=== PATIENT | female | born 2005 | race Caucasian/White ===

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

== ENCOUNTER 2023-02-03 08:28 | Emergency (ER) | payer OTHER, SELFPAY ==
--- NOTE | ~2023-02-03 | XR_ITS ---
EXAMINATION: XR HIP, RIGHT, with AP pelvis CLINICAL INFORMATION: Pain for 2 days. COMPARISON: None available. TECHNIQUE: Two views of the right hip. AP view of pelvis. FINDINGS: Right hip: The femoral head is well-positioned within the intact acetabulum. The hip joint space is normal. No arthritic deformity. No fracture or subluxation. Pelvis: Bones, joints and soft tissues have a normal appearance. No specific source of pain is identified. XR/XR hip RT w PEL1V IMPRESSION: Normal radiographic examinations of the pelvis and right hip.
[2023-02-03 09:22] VITALS: BP 102/61; PULSE 83; RESP 18; TEMP 36.6; O2SAT 98; BMI 29.6
--- NOTE | 2023-02-03 09:33 | ED.LOWEXIN ---
HPI - Extremity Injury (Lower) General Chief Complaint: Extremity Injury, Lower Stated Complaint: hip possibly dislocated Time Seen by Provider: 02/03/23 09:23 Source: patient Mode of arrival: ambulatory Limitations: no limitations History of Present Illness HPI Narrative: Patient is a 17-year-old female presenting to the emergency department with complaint of right hip pain radiating down right leg for the past 2 days. Patient states that she has been unable to walk due to level of pain. She denies any fall or other trauma. Denies any numbness or tingling to lower extremities. Denies any fevers. Denies any dysuria, frequency, other urinary symptoms. States has not taken any jyve-eyo-cvxbsmy medications for her pain at home. Stating ?I think my hip is dislocated. ? complaint: other (hip pain right) Onset (ago): day(s) Injury: Right: hip (atraumatic) Severity: severe Relieving factors: nothing Exacerbating factors: weight bearing Associated symptoms: able to partially bear weight Other symptoms: none Related Data Previous Rx's Medication Instructions Recorded nitrofurantoin 100 mg PO BID 7 days #14 caps 05/21/22 monohydrate/macrocrystals 100 mg capsule (Macrobid) ondansetron HCl 4 mg tablet 4 mg PO Q8H #14 tabs 05/21/22 cyclobenzaprine 5 mg tablet 5 mg PO TID PRN muscle spasm #10 02/03/23 tabs lidocaine 5 % topical patch 1 patch topical DAILY #15 ea 02/03/23 naproxen 500 mg tablet 500 mg PO BID #14 tabs 02/03/23 Allergies Allergy/AdvReac Type Severity Reaction Status Date / Time No Known Allergies Allergy Verified 02/03/23 09:22 Review of Systems Review of Systems: As per HPI Yes all other systems are reviewed and are negative Constitutional: Constitutional: Reports as per HPI [facility] Social History Social History Smoked in Last 30 Days: No Substance Use Type: Marijuana Substance Use Frequency: Daily Advance Directives: No Physical Exam Vital Signs: Vital Signs: Last Vital Signs Temp 98 F 02/03/23 09:22 Pulse 83 02/03/23 09:22 Resp 18 02/03/23 09:22 BP 102/61 02/03/23 09:22 Pulse Ox 98 02/03/23 09:22 O2 Del Method Room Air 02/03/23 09:22 BMI result Body Mass Index 29.6 Vital signs have been reviewed and appear to be correct. Blood pressure normal. Heart rate normal. Respiratory rate normal. Temperature normal. Oxygen saturation normal. Const: General: cooperative, healthy appearing and no acute distress Orientation/consciousness: oriented to person, oriented to place, oriented to time and patient oriented x3 Limitations: no limitations HEENT: Head: Yes normocephalic and Yes atraumatic Ears: external ears normal General nose exam: Normal external nose present Face and sinus: Yes face symmetric Mouth: oropharynx normal and moist mucous membranes Throat: Yes uvula midline Eyes: Pupils: Equal, round and reactive pupils present Neck: Neck: Yes normal visual inspection and Yes supple Resp: Effort & Inspection: normal respiratory effort and able to speak in complete sentences Auscultation: clear to auscultation bilaterally Cardio: Rate: regular rate Rhythm: regular rhythm Heart sounds: S1 normal heart sound present and S2 normal heart sound present GI: Palpation (GI): Soft to palpation and nontender Auscultation: normoactive bowel sounds : General: Yes no CVA tenderness Back/Spine/Pelvis: Back: no CVA tenderness Thoracic/Lumbar Spine: thoracic and lumbar spine normal to inspection, paraspinal muscle tenderness on the right in the mid lumbar, No thoracic spinal tenderness, No lumbar spinal tenderness and straight leg raise positive right Pelvis: no pain with anterior-posterior compression and no pain with lateral compression Skin: General skin exam: elasticity normal and turgor normal Neuro: General: oriented to person, oriented to place, oriented to time, patient oriented x3, moves all extremities, no focal motor deficits and CN's II-XI intact bilaterally Cranial nerves: Yes Equal, round and reactive pupils present Cognition (Neuro): normal cognition Extrem: General: Yes normal to inspection, Yes full ROM, Yes capillary refill normal, Yes normal exam except as noted, Yes no pedal edema and Yes no calf tenderness Right lower extremity: normal to inspection, normal capillary refill, hip/thigh Details: normal to inspection and abnormal ROM Details: pain with passive ROM during Details: to ADduction, to ABduction, to extension, to flexion, to internal rotation and to external rotation and with range as follows (full passive ROM); no tenderness, no ecchymosis, no crepitus, no deformity and no unusual warmth and foot Details: vascular exam Details: dorsalis pedis pulse present and posterior tibial pulse present Psych: Mental Status: mental status grossly normal Affect: normal affect Thought process: Normal thought process present Medications Administered Discontinued Medications Generic Name Dose Route Start Last Admin Trade Name Kasey PRN Reason Stop Dose Admin Acetaminophen 975 mg 02/03/23 09:37 02/03/23 10:02 Acetaminophen 325 Mg Tablet PO 02/03/23 09:38 975 mg ONCE ONE Administration Medical Decision Making Medical Decision Making [facility] Narrative: Patient is a 17-year-old female presenting to the emergency department with complaint of right hip pain radiating down right leg for the past 2 days. On exam patient is awake, A+Ox3, VS WNL, afebrile, normal neurological exam without focal deficits, physical exam findings as above. Given reported symptoms and physical exam findings, initial differential includes strain, sprain, lumbar radiculopathy. Do not suspect dislocation based on physical exam findings but will obtain x-ray. X-ray notable for no acute abnormalities. My interpretation is in agreement with the radiologist's interpretation. Patient now ambulating in room independently. Results discussed with patient and all questions answered. Will prescribe cyclobenzaprine, naproxen, lidocaine. Instructed patient to follow-up with PCP. Return precautions discussed at bedside. Patient verbalized understanding of and agreement with plan. Differential Diagnosis Differential Diagnoses: The differential diagnosis associated with the presentation includes As per MDM. Independent Interpretation I performed an independent interpretation of an: Plain X-Ray Interpretation: No acute abnormalities Radiology Impression Discussion of test interpretation with radiology: I have reviewed the radiologist's reading. Radiologist Impression: XR/XR hip RT w PEL1V IMPRESSION: Normal radiographic examinations of the pelvis and right hip. External Record Review External record reviewed: Inpatient record, Office record and Outpatient record Prescription Management I considered prescription management with: Pain Medication and Other Discharge Plan Discharge Clinical Impression: Acute pain of right hip Patient Disposition: Home, Self-Care Instructions: Hip Pain (ED) Additional Instructions: You have been evaluated in the emergency department today for hip pain. Your evaluation did not find evidence of medical conditions requiring emergent intervention at this time. Please rest, and ice your hip, and resume normal activities as tolerated. You are being prescribed cyclobenzaprine which you can take up to every 8 hours for muscle spasms, lidocaine patches which can wear for up to 12 hours in a 24 hour., and naproxen which you should take twice daily as prescribed. Do not apply heat directly over the lidocaine patches. Return to the emergency department if you experience worsening pain, numbness, tingling, change of color in your leg, or any other concerning symptoms. Please call your primary care provider to schedule an appointment for this week. Prescriptions: New cyclobenzaprine 5 mg tablet 5 mg PO TID PRN (Reason: muscle spasm) Qty: 10 0RF naproxen 500 mg tablet 500 mg PO BID Qty: 14 0RF lidocaine 5 % adhesive patch,medicated 1 patch topical DAILY Qty: 15 0RF Rx Instructions: leave on most painful area for up to 12 hrs No Action nitrofurantoin monohyd/m-cryst [Macrobid] 100 mg capsule 100 mg PO BID 7 Days Qty: 14 0RF Rx Instructions: must administer with a meal/food ondansetron HCl 4 mg tablet 4 mg PO Q8H Qty: 14 0RF Referrals: [facility] [Provider Group]
[2023-02-03] MEDS: Acetaminophen 325 MG TABLET 975 MG PO (10:02)
[2023-02-03 11:48] VITALS: BP 104/60; PULSE 108; RESP 18; TEMP 36.2; O2SAT 98
--- NOTE | 2023-02-03 12:18 | PC.NURSE ---
Addendum entered by Keya Dougherty 02/03/23 12:18: written at 1155 Original Note: pt report some + effect w tylenol. ambulatse well to WR. no resp distress. talking well
== END 2023-02-03 11:55 | disposition home or self-care (01) ==
PROVIDERS: Emergency Provider Emergency Medicine
DX: M25.551 Pain in right hip (principal); F12.90 Cannabis use, unspecified, uncomplicated
CPT/HCPCS: 73502; 99283; 99284

== ENCOUNTER → 2023-06-08 11:10 | Outpatient (BNVA) | payer OTHER, SELFPAY | PROVIDERS: Visit Provider Physical Medicine & Rehabilitation ==

== ENCOUNTER 2023-12-11 10:11 | Emergency (ER) | payer OTHER, SELFPAY ==
[2023-12-11 10:13] VITALS: BP 83/53; PULSE 78; RESP 22; TEMP 36.7; O2SAT 97; BMI 28.7
[2023-12-11 10:41] VITALS: BP 119/50; PULSE 86; RESP 20; O2SAT 98
--- NOTE | 2023-12-11 10:48 | ECG_ITS ---
Test Reason : dyspnea Blood Pressure : / mmHG Vent. Rate : 072 BPM Atrial Rate : 072 BPM P-R Int : 120 ms QRS Dur : 080 ms QT Int : 416 ms P-R-T Axes : 055 060 035 degrees QTc Int : 455 ms Normal sinus rhythm with sinus arrhythmia Normal ECG No previous ECGs available Referred By: Nissa Mena Electronically Signed By:KASEY LE
[2023-12-11 10:52] LABS: MANUAL DIFF FLAG NO
[2023-12-11] MEDS: diphenhydrAMINE HCL 50 MG/ML VIAL 25 MG IVPUSH (10:54)
[2023-12-11] MEDS: 0.9 % Sodium Chloride 1,000 ML 999 ML IV ×2 (10:54→10:56)
[2023-12-11 11:02] LABS: Basophils Percent Auto 0.2 % (0-2); Hematocrit 40.1 % (37.0-47.0); Hemoglobin 14.3 g/dl (12.0-16.0); Imm Gran Abs Auto 0.11 X10*3/uL (0.00-0.03); Imm Gran Pct Auto 0.8 % (0.0-0.4); Lymphocytes Absolute Auto 1.4 X10*3/uL (1.2-4.9); Lymphocytes Percent Auto 9.7 % (20-40); Mean Corpuscular HGB Conc 35.7 g/dl (31.0-35.0); Mean Corpuscular Hemoglobin 29.7 pg (27.0-33.0); Mean Corpuscular Volume 83.2 fL (80.0-98.0); Mean Platelet Volume 9.8 fL (9.4-12.3); Monocytes Absolute Auto 0.6 X10*3/uL (0.1-1.2); Monocytes Percent Auto 4.3 % (2-11); Neutrophils Absolute Auto 12.3 x10*3/uL (2.0-8.3); Platelet Count 351 X10*3/uL (160-400); Red Blood Count 4.82 X10*6/uL (4.20-5.50); Red Cell Distribution Width 12.4 % (11.0-16.0); White Blood Count 14.5 X10*3/uL (4.8-10.8)
--- NOTE | 2023-12-11 11:04 | ED_ITS ---
HPI - Nausea/Vomiting/Diarrhea General Chief complaint: Dyspnea Stated complaint: Diff breathing Time Seen by Provider: 12/11/23 10:27 Source: patient and other (spouse) Mode of arrival: ambulatory Limitations: no limitations History of Present Illness ED Provider: SYEDA FONTAINE Narrative: 18 yo female with PMH of anxiety, G1 8 weeks D = [facility] here with c/o n/v all night then started to panic and feel short of breath. She denies cough, fevers, chest pain, leg swelling. She is not on any medications right now. She had a panic attack on arrival to the ED including sweating, hyperventilation, crying. No recent travel or procedures. No vaginal bleeding reported. MD elicited complaint: nausea, vomiting and other (dyspnea) Pertinent past history: other (8 weeks ) Onset (ago): hour(s) (several) Description of vomiting: watery Associated nausea: Yes Associated abdominal pain: No Severity: moderate Exacerbating factors: eating Relieving factors: none Context: other () Associated symptoms: loss of appetite, malaise, nausea/vomiting, shortness of breath, weakness and anxiety Related Data Previous Rx's ?Medication ?Instructions ?Recorded nitrofurantoin 100 mg PO BID 7 days #14 caps 05/21/22 monohydrate/macrocrystals 100 mg capsule (Macrobid) ondansetron HCl 4 mg tablet 4 mg PO Q8H #14 tabs 05/21/22 cyclobenzaprine 5 mg tablet 5 mg PO TID PRN muscle spasm #10 02/03/23 tabs lidocaine 5 % topical patch 1 patch topical DAILY #15 ea 02/03/23 naproxen 500 mg tablet 500 mg PO BID #14 tabs 02/03/23 Allergies Allergy/AdvReac Type Severity Reaction Status Date / Time No Known Allergies Allergy Verified 12/11/23 10:16 Review of Systems 2 Review of Systems: Constitutional : No Weight loss, No Fever, No Chills ENT/Mouth : No sore throat, No Rhinorrhea Eyes: No Swelling, No Redness Cardiovascular : No Chest Pain, pos SOB, No Edema Respiratory : No Cough, No Sputum, No Wheezing Gastrointestinal : Positive Nausea, Positive Vomiting, no Diarrhea, no abdominal Pain, No Hematochezia, No Melena Genitourinary : No Dysuria, No Urinary Frequency, No Hematuria, No Urgency Musculoskeletal : No joint pain, No Myalgias, No Joint Swelling Skin : No Skin Lesions, No rash Neuro : pos Weakness, No Numbness, No Dizziness, No Headache Psych : pos Anxiety/Panic, No Depression Heme/Lymph: No Bruising, No Lymphadenopathy Endocrine : No Polyuria, No Polydipsia All other systems reviewed and are negative. Gastrointestinal: Gastrointestinal: Reports nausea PMFSH Past Medical History Attestation statement: The following information was validated with the patient. Source: old records reviewed Medical History (Updated 12/11/23 @ 13:40 by Nissa Mena DO) Anxiety Social History Social History (Updated 12/11/23 @ 11:09 by Nissa Mena DO) Patient Tobacco Use Status: Never used Tobacco Substance Use Type: Marijuana Advance Directives: No Advance Directives Information Provided: No Do you have a plan to hurt others: No Plan Physical Exam 2 Vital Signs: Vital Signs: Last Vital Signs Temp 98.0 F 12/11/23 10:13 Pulse 86 12/11/23 10:41 Resp 20 12/11/23 10:41 BP 119/50 L 12/11/23 10:41 Pulse Ox 98 12/11/23 10:41 O2 Del Method Room Air 12/11/23 10:41 BMI result Body Mass Index 28.7 Appearance: Alert. Oriented X3. anxious tearful, hyperventilating, crying, hands carpopedal spasm tingling mild acute distress. Eyes: Pupils equal, round and reactive to light. ENT: Pharynx normal. Neck: Normal inspection. Neck supple. CVS: Normal heart rate and rhythm. Pulses normal. Respiratory: No respiratory distress. Breath sounds normal. Abdomen: Soft and nontender. Skin: Skin warm and dry. Normal skin color. Normal skin turgor. Extremities: No lower extremity edema. No calf ttp Neuro: Oriented X 3. No motor deficit. No sensory deficit. Course Course Course Narrative: repeat BP check normal suspect dehydration not infection or severe sepsis Reevaluation(s) Reevaluation #1: one bump in ALT but no abdominal pain, plts normal, BP normal at this time stable for DC Medications Administered Discontinued Medications Generic Name Dose Route Start Last Admin Trade Name Freq PRN Reason Stop Dose Admin Diphenhydramine HCl 25 mg 12/11/23 10:48 12/11/23 10:54 Diphenhydramine Hcl 50 Mg/Ml Vial IVPUSH 12/11/23 10:49 25 mg ONCE ONE Administration Sodium Chloride 1,000 mls @ 999 mls/hr 12/11/23 10:49 12/11/23 13:27 Ns IV 12/11/23 11:49 Infused .Q1H1M ONE Infusion Sodium Chloride 1,000 mls @ 999 mls/hr 12/11/23 10:50 12/11/23 13:27 Ns IV 12/11/23 11:50 Infused .Q1H1M ONE Infusion Metoclopramide HCl 10 mg 12/11/23 11:57 12/11/23 11:59 Metoclopramide Hcl 10 Mg/2 Ml Vial IVPUSH 12/11/23 11:58 10 mg ONCE ONE Administration Medical Decision Making Medical Decision Making [facility] Narrative: 18 yo female with PMH of anxiety here with c/o n/v and severe anxiety now with dyspnea no URI symptoms or fevers, no hypoxia or signs of edema or calf pain to suggest DVT no recent travel or procedures has no chest pain at this time suspect anxiety induced dyspnea I am not suspecting VTE, CHF, ACS will obtain labs, EKG, IV benadryl for anxiety and 2L of IVF. Will reassess. Differential Diagnosis Differential Diagnoses: The differential diagnosis associated with the presentation includes hyperemesis, dehydration, panic attack, anxiety Admission/Observation Consideration of admission/observation: Escalation of care including admission/observation considered tolerating PO feels much better has nausea Rx in pharmacy can be DC home Lab Data [facility] Lab Attestation statement: I reviewed the patient's lab results. 12/11/23 10:47 12/11/23 10:47 Labs: Lab Results 12/11/23 12/11/23 12/11/23 Range/Units 10:47 10:57 13:13 WBC 14.5 H (4.8-10.8) X10*3/uL RBC 4.82 (4.20-5.50) X10*6/uL Hgb 14.3 (12.0-16.0) g/dl Hct 40.1 (37.0-47.0) % MCV 83.2 (80.0-98.0) fL MCH 29.7 (27.0-33.0) pg MCHC 35.7 H (31.0-35.0) g/dl RDW 12.4 (11.0-16.0) % Plt Count 351 (160-400) X10*3/uL MPV 9.8 (9.4-12.3) fL Immature Gran % (Auto) 0.8 H (0.0-0.4) % Neut % (Auto) 85.0 H (45-73) % Lymph % (Auto) 9.7 L (20-40) % [place] % (Auto) 4.3 (2-11) % Eos % (Auto) 0.0 (0-4) % Baso % (Auto) 0.2 (0-2) % Lymph # (Auto) 1.4 (1.2-4.9) X10*3/uL [place] # (Auto) 0.6 (0.1-1.2) X10*3/uL Eos # (Auto) 0.0 (0.0-0.4) X10*3/uL Baso # (Auto) 0.0 (0.0-0.2) X10*3/uL Abs Immat Gran (auto) 0.11 H (0.00-0.03) X10*3/uL Absolute Neuts (auto) 12.3 H (2.0-8.3) x10*3/uL Absolute Nucleated RBC 0.000 (0.0-0.012) X10*3/uL Nucleated RBC % (auto) 0.0 (0.0-0.2) /100WBC Sodium 140 (135-145) mmol/L Potassium 3.7 (3.3-5.1) mmol/L Chloride 106 (96-108) mmol/L Carbon Dioxide 17 L (22-29) mmol/L Anion Gap 21 H (12-20) BUN 9 (9-16) mg/dL Creatinine 0.87 (0.5-1.4) mg/dL Estim Creat Clear Calc 99.0 Estimated GFR > 60 Random Glucose 119 H (60-115) mg/dL Calcium 10.9 H D (8.4-10.2) mg/dL Total Bilirubin 0.7 (0.0-1.0) mg/dL AST 14 (5-31) U/L ALT 65 H (0-31) U/L Alkaline Phosphatase 51 (39-117) U/L Total Protein 7.8 (6.5-8.0) g/dL Albumin 4.8 (3.5-5.0) g/dL Beta HCG, Quant 10963 mIU/mL Urine Color Yellow Urine Appearance Cloudy Urine pH 7.5 (5.0-9.0) Ur Specific [place] 1.025 (1.005-1.025) Urine Protein 30 (1+) H (Neg-Trace) mg/dL Urine Glucose (UA) Negative (Negative) mg/dL Urine Ketones >=160 (Negative) mg/dL Urine Blood Negative (Negative) Urine Nitrite Negative (Negative) Ur Leukocyte Esterase Negative (Negative) Influenza Type A (PCR) NEGATIVE (Negative) Influenza Type B (PCR) NEGATIVE (Negative) RSV RNA Qual (PCR) NEGATIVE (Negative) SARS-CoV-2 RNA (RT-PCR) NEGATIVE (Negative) Independent Interpretation I performed an independent interpretation of an: EKG Interpretation: Rate: 72 Rhythm: NSR [place]: normal Normal P waves. Normal JAJA. Normal QRS complex. ST T wave : normal no SAURABH qTC: 455 prior studies: no acute ischemia The study has been interpreted contemporaneously by me. . Independent Historian Clinical information obtained from an independent historian. History obtained from or confirmed by: Other (partner) External Record Review External record reviewed: Outpatient record Prescription Management I considered prescription management with: Other Discharge Plan Discharge Clinical Impression: Hyperemesis gravidarum, Acute dehydration Patient Disposition: Home, Self-Care Instructions: Hyperemesis Gravidarum (ED), Dehydration (ED) Additional Instructions: go grape picker your prescriptions now return here for any worsening symptoms or concerns stay hydrated follow up with your OBGYN or provider rest as much as you can today Prescriptions: No Action nitrofurantoin monohyd/m-cryst [Macrobid] 100 mg capsule 100 mg PO BID 7 Days Qty: 14 0RF Rx Instructions: must administer with a meal/food ondansetron HCl 4 mg tablet 4 mg PO Q8H Qty: 14 0RF cyclobenzaprine 5 mg tablet 5 mg PO TID PRN (Reason: muscle spasm) Qty: 10 0RF naproxen 500 mg tablet 500 mg PO BID Qty: 14 0RF lidocaine 5 % adhesive patch,medicated 1 patch topical DAILY Qty: 15 0RF Rx Instructions: leave on most painful area for up to 12 hrs Print Language: Yoruba
[2023-12-11 11:19] LABS: Alanine Aminotransferase 65 U/L (0-31); Albumin Level 4.8 g/dL (3.5-5.0); Alkaline Phosphatase 51 U/L (39-117); Anion Gap 21 (12-20); Aspartate Amino Transferase 14 U/L (5-31); Bilirubin Total 0.7 mg/dL (0.0-1.0); Blood Urea Nitrogen 9 mg/dL (9-16); Calcium 10.9 mg/dL (8.4-10.2); Carbon Dioxide 17 mmol/L (22-29); Chloride 106 mmol/L (96-108); Estimated Glomerular Filt Rate > 60; Glucose Random 119 mg/dL (60-115); Potassium 3.7 mmol/L (3.3-5.1); Sodium 140 mmol/L (135-145); Total Protein 7.8 g/dL (6.5-8.0)
[2023-12-11] MEDS: Metoclopramide HCl 10 MG/2 ML VIAL IVPUSH (11:59)
[2023-12-11 12:06] LABS: Influenza A PCR NEGATIVE (Negative); Influenza B PCR NEGATIVE (Negative); Resp Syncy Virus RNA Qual PCR NEGATIVE (Negative); SARS COV2 PCR INHOUSE NEGATIVE (Negative)
--- NOTE | 2023-12-11 12:29 | PC.NURSE ---
patient complaining of nausea, medicated per JUN, resting comfortably on stretcher at this time IV fluids still running
[2023-12-11 13:19] LABS: Appearance Urine Cloudy; Color Urine Yellow; Glucose Urine UA Negative (Negative); Leukocyte Esterase Urine Negative (Negative); Nitrite Urine Negative (Negative); PH 7.5 (5.0-9.0); Specific Gravity - Urine 1.025 (1.005-1.025); UMIC TRIGGER UACC YES; Urine Blood Negative (Negative); Urine Ketones >=160 mg/dL (Negative); Urine Protein 30 (1+) mg/dL (Neg-Trace)
--- NOTE | 2023-12-11 13:28 | PC.NURSE ---
patient called this rn into room, stating she feels better and would like to be discharged, MD made aware, awaiting urine sample results, patient okay with plan
[2023-12-11 13:30] LABS: Bacteria Urine 1+ (None Seen); Hyaline Casts Urine 0-2 /LPF (0-2); WBC Urine 0-5 /HPF (0-5)
[2023-12-11 13:39] LABS: RBC Urine 0-2 /HPF (0-2)
[2023-12-11 13:45] VITALS: BP 96/49; PULSE 78; RESP 19; TEMP 36.7; O2SAT 98
[2023-12-11 13:48] VITALS: BP 96/49; PULSE 78; RESP 19; TEMP 36.7; O2SAT 98
== END 2023-12-11 13:52 | disposition home or self-care (01) ==
PROVIDERS: Emergency Provider Emergency Medicine
DX: O21.1 Hyperemesis gravidarum with metabolic disturbance (principal); O99.341 Other mental disorders complicating pregnancy, first trimester; R06.02 Shortness of breath; R10.2 Pelvic and perineal pain; Z3A.08 8 weeks gestation of pregnancy; Z03.818 Encounter for observation for suspected exposure to other biological agents ruled out; Z79.899 Other long term (current) drug therapy
CPT/HCPCS: 0241U; 36415; 80053; 81001; 84702; 85025; 93005; 96361; 96374; 96375; 99284; J1200; J2765